=== PATIENT | male | born 1940 | race Caucasian/White ===

== ENCOUNTER → 2019-08-27 | Day surgery (SDC) | payer MEDICARE ==
[~2019-08-27] MED LIST: ASMANEX110 MC2 INH; GOOD NEIGHBOR L10 MG PO; PREDNISONE10 MG PO; PROAIR HFA8.5 GM INH; PROVENTIL HFA6.7 GM INH; SYMB160 INH
[2019-08-27 07:50] VITALS: BP 186/99
[2019-08-27 09:54] VITALS: BP 149/97
[2019-08-27 10:09] VITALS: BP 168/99
[2019-08-27 10:23] VITALS: BP 158/99
[2019-08-28 11:06] LABS: ACID FAST SPEC PROCESSING Concentration (.)
== END | disposition home or self-care (01) ==
LOC: SDC 08-26 10:15
PROVIDERS: Internal Medicine Critical Care Medicine
DX: J44.9 Chronic obstructive pulmonary disease, unspecified (principal)